=== PATIENT | male | born 1970 | race Caucasian/White ===

== ENCOUNTER 2023-08-01 06:22 | Day surgery (SDC) | payer BC ==
[2023-08-01] MEDS ORDERED: EXPAREL 133 MG/10 ML VIAL IJ ONE (06:23)
[2023-08-01] MEDS ORDERED: BUPIVACAINE 0.5% VIAL IJ ONE (06:23)
[2023-08-01] MEDS: celeBREX 100 MG PO ONE (06:48)
[2023-08-01] MEDS: NEURONTIN PO ONE (06:48)
[2023-08-01] MEDS: Decadron 4 MG PO ONE (06:48)
[2023-08-01] MEDS: CEFAZOLIN 2 GM-D5W BAG** 2 GM/50 ML ML IV SCH (06:49)
[2023-08-01] MEDS: TYLENOL EXTRA STRENGTH 500 MG PO ONE (06:49)
[2023-08-01] MEDS: Lactated Ringers 1,000 ML IV SCH (06:49)
[2023-08-01] MEDS ORDERED: Pepcid 20 MG ONE (06:50)
[2023-08-01] MEDS: Pepcid 20 MG PO ONE (07:06)
[2023-08-01] MEDS: TRANEXAMIC 1,000 MG/100ML-NACL 1,000 MG/100 ML PIGGYBACK IV ONE (08:02)
[2023-08-01] MEDS ORDERED: Reglan 10 MG/2 ML ONE (08:38)
[2023-08-01] MEDS: Reglan 10 MG/2 ML IV ONE (08:40)
[2023-08-01] MEDS ORDERED: Astramorph-Pf 5 MG/10 ML ONE (08:54)
[2023-08-01] MEDS ORDERED: Versed 2 MG/2 ML Injection ONE (08:54)
[2023-08-01] MEDS ORDERED: DIPRIVAN 200 MG/20 ML IV ONE (08:54)
[2023-08-01] MEDS ORDERED: ROCURONIUM BROMIDE IV ONE (08:56)
[2023-08-01] MEDS ORDERED: Quelicin Fliptop 200 MG/10 ML ONE (08:56)
[2023-08-01] MEDS ORDERED: Decadron 4 MG INJ ONE (08:57)
[2023-08-01] MEDS ORDERED: Zofran 4 MG/2 ML VIAL ONE (08:57)
[2023-08-01] MEDS ORDERED: Xylocaine-Mpf 2% 5 Ml Vial ONE (08:57)
[2023-08-01] MEDS ORDERED: SUBLIMAZE 100 MCG/2 ML ONE (08:59)
[2023-08-01] MEDS ORDERED: PHENYLEPHRINE HCL ONE (09:55)
[2023-08-01] MEDS ORDERED: Ephedrine Sulfate 50 MG/ML ONE (10:23)
[2023-08-01] MEDS ORDERED: Lactated Ringers 1,000 ML IV ONE (10:46)
[2023-08-01] MEDS ORDERED: SODIUM CHLORIDE 0.9% IV ONE (11:15)
[2023-08-01] MEDS ORDERED: MARCAINE MPF IV ONE (11:15)
[2023-08-01] MEDS ORDERED: BRIDION 200MG/2ML IV ONE (11:26)
[2023-08-01] MEDS ORDERED: TORAdol 30 mg Injection ONE (11:27)
--- NOTE | 2023-08-01 11:37 | OP ---
ORTHO Procedure Note Procedure Date:: 08/01/23 Procedure Time: 11:30 ORTHO Procedure Note: L tkr spinal and block and GA alyce ebl: 100 ml complic 0 stable Plan: home today
[2023-08-01 12:57] VITALS: BP 123/75; PULSE 78; RESP 16; TEMP 98; O2SAT 95
[2023-08-01] MEDS ORDERED: Nubain 10 MG/ML IV PRN (13:30)
[2023-08-01] MEDS ORDERED: Zofran 4 MG/2 ML VIAL IV PRN (13:30)
[2023-08-01] MEDS ORDERED: CLARITIN 10 MG PO PRN (13:30)
[2023-08-01] MEDS ORDERED: Sodium Chloride 0.9% 10 ML FLUSH Syringe IJ PRN (13:30)
[2023-08-01] MEDS ORDERED: PERCOCET TABLET 5/325MG PO PRN (13:30)
[2023-08-01] MEDS ORDERED: Narcan 0.4 MG/ML IV PRN (13:30)
[2023-08-01] MEDS ORDERED: DEMEROL 50 MG IV PRN (13:30)
[2023-08-01] MEDS ORDERED: BENADRYL 50 MG/ML IV PRN (13:30)
[2023-08-01] MEDS ORDERED: MORPHINE SULFATE 2 MG INJ IV PRN (13:30)
[2023-08-01] MEDS ORDERED: TYLENOL EXTRA STRENGTH 500 MG PO PRN (13:36)
[2023-08-01] MEDS ORDERED: Docusate Sodium 100 MG PO PRN (13:36)
[2023-08-01 13:48] LABS: Hemoglobin 12.8 g/dL (12.5-18.0)
[2023-08-01 14:03] LABS: ANION GAP 14.5 MEQ/L (5-15); Calcium 8.6 mg/dL (8.4-10.2); Creatinine 1 0.93 mg/dL (0.66-1.25); Potassium 4.3 mmol/L (3.5-5.1)
--- NOTE | 2023-08-01 14:11 | XRAY ---
Indication: Follow-up total knee replacement. Comparison: November 13, 2022 AP/lateral left knee demonstrates interval total knee replacement with intact prosthesis/articulation, anterior postoperative soft tissue swelling, and anterior cutaneous ramonita. No other bony, articular, or soft tissue abnormalities.
[2023-08-01] MEDS ORDERED: Cozaar 50 MG PO SCH (15:00)
--- NOTE | 2023-08-01 15:42 | OP ---
PROCEDURE DATE/TIME: 08/01/2023 0905 PREOPERATIVE DIAGNOSIS: Left knee degenerative joint disease. POSTOPERATIVE DIAGNOSIS: Left knee degenerative joint disease. PROCEDURE: Left total knee replacement. ATTENDING PHYSICIAN: Zane Gil M.D. FIELD REPRESENTATIVES DIRECTOR: Felicita Chino. ANESTHESIA: Spinal plus abductor block plus general. FINDINGS: Severe degenerative joint disease with varus. IMPLANTS: Nahomy Persona Left 9 standard femur. E tibia and a 10 mm medial congruent polyethylene and a size 29 symmetrical patella. QUANTATIVE BLOOD LOSS: 100 ml. SPECIMENS: None. DRAINS: None. COMPLICATIONS: None. INDICATIONS FOR PROCEDURE: The patient is a 52-year-old white male with painful left knee refractory to conservative care. The patient presents for pain relief. DESCRIPTION OF PROCEDURE: Patient seen in holding room. Identified the left knee as correct and this was initialed by me. He had 2 gm of Kefzol and a 1000 mg tranexamic acid preoperatively. He had a nerve block and then he had intubation due to having had some chewing tobacco earlier in the morning. He also had the spinal anesthesia. He was positioned supine with a bump under his left hip. He had sterile prep and drape on his left lower extremity. Time out was performed. Tourniquet was applied around the upper thigh to 250 mm of Mercury. Total tourniquet time was 53 minutes. A midline incision is made from just medial to the tibial tubercle to about 6 cm superior to the superior pole the patella. A medial parapatellar approach was made splitting the quadriceps tendon 10%/90%. The patella was everted. The fat pad was excised to about 50%. The drill was drilled down the center of the tibial and femoral canal. The guide bi was placed in the femoral canal at 5 of valgus of the left knee with 10 mm distal cut made off the cutting block which had been pinned in place. The tibia was then prepared with an intramedullary bi with verification with intramedullary instrumentation taking 4 mm off of the medial side in neutral varus with a 7 degree posterior slope. The PCL was protected during this. The femoral sizer was placed with anterior referencing off the highest spot on the lateral side of the anterior femur choosing a size 9 femur marking 3 of external rotation. The cutting block for this was pinned in place and then the anterior and posterior chamfer and anterior cuts were made with a saw. The bone was removed and then the menisci were removed. Trial femur was trialed with a size 9 being perfect size with standard width. The size E tibial base plate was pinned in place and marked with rotation of the medial third and tibia tubercle. A 10 mm polyethylene was placed with medial congruent poly with good range of motion and good stability from 0 to 115 degrees of flexion patella tracking midline. The lug nuts were drawn out on the femur. Also, the patella had reamed from 23 mm thickness down to 14 mm thickness with Nahomy patella clamp and drill holes were drilled out for size 29 patella with the field guide. A trial was done with patella tracking fairly good with only mild lateral tilt which improved when the final components were put in. The base plate for the tibia was punched out with drill and Keel punch for the E tibia. The femoral canal was plugged with bone plug. The bony structures were irrigated and dried. 30 cc of saline was mixed with 30 cc of 0.5% Marcaine and this was injected around the capsule circumferentially. Two batches of Nahomy cement were mixed on the back table under vacuum conditions with cement gun and this was then placed on the dry bony surfaces and on the components. Tibial components applied first and then the femoral component. A 10 mm space was applied and the knee was put in full extension. The patella button was held with a clamp. Tourniquet was then released. Hemostasis was obtained with electrocautery. When cement had hardened excess cement was trimmed off with osteotome. The knee was thoroughly irrigated and the 10 mm polyethylene was locked into tray with good stability in flexion, mid flexion and extension 0 to 115 degrees of flexion. The patella tracked in the midline. The medial parapatellar approach was closed with #2 MaxBraid suture. The subcu was closed with 2-0 Vicryl and the skin with ramonita. Sterile dressings were applied with the knee slightly flexed. DISPOSITION: The patient will be weight bearing as tolerated. He will go home today if he does well with therapy. He will go home on Percocet 5 mg 1 or 2 tablets p.o. q4h PRN #30. He will keep the dressing on for five days postoperative. He will be seen back in ten days for staple removal.
[2023-08-01] MEDS ORDERED: CEFAZOLIN 2 GM-D5W BAG** 2 GM/50 ML ML IV SCH (18:00)
[2023-08-01] MEDS ORDERED: Glucophage XR 500 MG PO SCH (18:00)
[2023-08-02] MEDS ORDERED: NON-FORMULARY ITEM (Atorvastatin Calcium [Atorvastatin Calcium] 80 MG Tablet) PO SCH (10:00)
[2023-08-02] MEDS ORDERED: ECOTRIN 81 MG PO SCH (10:00)
[2023-08-02] MEDS ORDERED: NORCO 5/325 MG PO PRN (10:00)
[2023-08-02] MEDS ORDERED: ZOCOR 20MG PO SCH (10:00)
[2023-08-02] MEDS ORDERED: HOLD NARCOTIC ANALGESICS AND SEDATIVES X24 HR MC SCH (10:00)
[2023-08-02] MEDS ORDERED: MORPHINE SULFATE 2 MG INJ IV PRN (10:00)
[2023-08-02] MEDS ORDERED: Oxy-IR 5 MG PO PRN (10:00)
[2023-08-02] MEDS ORDERED: PERCOCET TABLET 5/325MG PO PRN (13:36)
[2023-08-02] MEDS ORDERED: Toprol Xl 50 MG PO SCH (15:00)
== END 2023-08-01 15:15 | disposition home or self-care (01) ==
LOC: SDC 06:22 → MED SURG 12:28 → UNDOADMOB 12:39 → SDC 15:15
PROVIDERS: ATTEND Orthopaedic Surgery
DX: M17.12 Unilateral primary osteoarthritis, left knee (principal); E11.9 Type 2 diabetes mellitus without complications; I10 Essential (primary) hypertension
CPT/HCPCS: 27447; 36415; 73560; 76937; 80048; 82947; 85014; 85018; C1776; J0330; J0690; J1100; J1885; J2250; J2274; J2371; J2405; J2704; J3010; A9270-GY